=== PATIENT | female | born 1945 | race African-American/Black ===

== ENCOUNTER 2025-01-22 13:05 | Day surgery (SDC) | payer MEDICARE, SELFPAY ==
[2025-01-22] VITALS (10 sets, daily range): BP systolic 126–166; BP diastolic 60–88; PULSE 59–85; RESP 12–26; TEMP 36.8–37.4; O2SAT 95–100; BMI 17.2
[2025-01-22] MEDS: SODIUM CHLORIDE 0.9% 500 ML 500 ML 20 ML IV (14:37)
[2025-01-22] MEDS: MIDAZOLAM INJ 1 MG/ML VIAL 2 ML (ASD USE ONLY) 2 MG IVP (14:46)
[2025-01-22] MEDS: fentaNYL CIT INJ 50 mCg/ML AMP 2ML (ASD USE ONLY) IVP (14:46)
== END 2025-01-22 15:41 | disposition home or self-care (01) ==
PROVIDERS: PCP Internal Medicine; Referring Provider Specialist; Visit Provider Specialist
PROC: 0DBE8ZX Excision of Large Intestine, Via Natural or Artificial Opening Endoscopic, Diagnostic (ICD-10-PCS; CPT 45380; principal; 2025-01-22 11:45)
DX: Z12.11 Encounter for screening for malignant neoplasm of colon (principal); Z86.0100 Personal history of colon polyps, unspecified; K64.1 Second degree hemorrhoids; K57.30 Diverticulosis of large intestine without perforation or abscess without bleeding
CPT/HCPCS: G0105; A4649; J1200; J2250; J3010; J7999